=== PATIENT | male | born 2000 | race Asian ===

== ENCOUNTER 2018-11-20 01:00 | Emergency (ER) | payer OTHER ==
--- NOTE | 2018-11-20 01:29 | EDPHY ---
H & P Stated Complaint: RIGHT TESTICLE PAIN AND SWELLING X1HR Time Seen by Provider: 11/20/18 01:12 HPI/ROS: Chief Complaint: Right testicle pain HPI: 18-year-old male had sudden onset of pain in his right testicle approximately an hour and half ago. Patient was resting at the time. Denies any falls or traumatic injuries. He is sexually active with a single partner. No recent sexual activity in the last 24 hr. No urinary urgency or frequency. No discharge. No rash. Is complaining of pain and swelling which is getting progressively worse over the last hour. ROS: 10 systems were reviewed and were negative except those elements noted in the HPI. PMH: Denies Social History: No smoking, occasional alcohol, no recreational drug use Family History: non-contributory Physical Exam: Gen: Awake, Alert, No Distress HEENT: Nose: no rhinorrhea Eyes: PERRLA, EOMI Mouth: Moist mucosa Neck: Supple, no JVD Chest: nontender, lungs clear to auscultation Heart: S1, S2 normal, no murmur Abd: Soft, non-tender, no guarding Genital: Left testes and scrotum is normal. Mild testicular swelling with tenderness at the epididymis, normal cremasteric. No scrotal swelling or edema. No erythema. No skin lesions noted. No discharge. Normal uncircumcised penis. Back: no CVA tenderness, no midline tenderness Ext: no edema, non-tender Skin: no rash Neuro: CN II-XII intact, Sensation grossly intact, Strength 5/5 in bilateral upper and lower extremities - Personal History Current Tetanus/Diphtheria Vaccine: Yes - Medical/Surgical History Hx Asthma: No Hx Chronic Respiratory Disease: No Hx Diabetes: No Hx Cardiac Disease: No Hx Renal Disease: No Hx Cirrhosis: No Hx Alcoholism: No Hx HIV/AIDS: No Hx Splenectomy or Spleen Trauma: No Other PMH: LOW B12 - Social History Smoking Status: Never smoked Constitutional: Initial Vital Signs Temperature (C) 36.4 C 11/20/18 01:03 Heart Rate 82 11/20/18 01:03 Respiratory Rate 20 11/20/18 01:03 Blood Pressure 104/84 H 11/20/18 01:03 O2 Sat (%) 99 11/20/18 01:03 O2 Delivery Mode Room Air Allergies/Adverse Reactions: No Known Allergies Allergy (Unverified 11/20/18 01:03) Home Medications: Medication Instructions Recorded Doxycycline Hyclate 100 mg PO BID #20 capsule 11/20/18 Vitamin B12 11/20/18 Medical Decision Making - Diagnostics Imaging Results: Testicular ultrasound shows normal flow, no masses, evidence of right epididymitis as small right hydrocele. Interpreted by Dr. Carranza. ED Course/Re-evaluation: 18-year-old male with right testicular pain. Will obtain ultrasound. Ultrasound shows normal flow, no evidence of testicular torsion. There is mild right epididymitis. Will give ceftriaxone and doxycycline, follow up with Urology. He also has evidence of a small right hydrocele. Departure - Departure Disposition: Home, Routine, Self-Care Clinical Impression: Epididymitis, Hydrocele Condition: Good Instructions: Epididymitis (ED), Testicle Pain (ED), Hydrocele (ED) Additional Instructions: Take ibuprofen, 600 mg every 8 hr. You may alternate with acetaminophen, 1000 mg every 8 hr. Please take your full course of antibiotics. Follow up with urologist in 3-4 days if symptoms are not improving. Referrals: Josafat Wood MD [Medical Doctor] - As per Instructions Prescriptions: Doxycycline Hyclate 100 mg PO BID #20 capsule
[2018-11-20] MEDS ORDERED: DOXYCYCLINE HYCLATE 100 MG CAP/TAB PO ONE (02:05)
[2018-11-20 02:56] VITALS: BP 108/65
== END 2018-11-20 02:54 | disposition home or self-care (01) ==
DX: N45.1 Epididymitis (principal); N43.3 Hydrocele, unspecified
CPT/HCPCS: J0696